=== PATIENT | female | born 1990 | race Hispanic/Latino ===

== ENCOUNTER 2018-10-03 15:21 | Emergency (ER) | payer OTHER ==
--- NOTE | 2018-10-03 16:12 | OBHP ---
Datetime: 10/03/2018 16:07 IP Adm Impression: Term, intrauterine IP Chief Complaint Other: low heart tone in office IP Admit Plan: Observation/Evaluation; Discharge home Admit Comment, IP Provider: Patient is a @ 39 wks for NST. patient was seen in office today and was found to have a heart rate around 115 on doppler. Patient sent for NST. Patient denies VB, oc casional contractions, +FM. No antepartum issues, no medical problems, no surgical problems, taking p renatal vitamins. FHR = 120 mod andressa, +accels, no decels. TOCO - ctxns q 10 mins, no very uncomfortabl e. Reactive NST, no signs of labor or chorio. Will discharge home, labor precautions discussed, pt to follow up in office next week Pelvic Type - PN: Adequate Extremities - PN: Normal Abdomen - PN: Normal Back - PN: Normal Breast - PN: Normal Lungs - PN: Normal Heart - PN: Normal Thyroid - PN: Normal Neurologic - PN: Normal HEENT - PN: Normal General - PN: Normal FHR - Baseline A Provider: 120 Contraction Comments Provider: Occasional Vital Signs Provider: Reviewed; Within Normal Limits NICHD Variability Prov Fetus A: Moderate 6-25bpm NICHD Accel Fetus A IP Provider: [id number] NICHD Decel Fetus A IP Provider: None Genitourinary Exam: Normal DTRs - PN: Normal
--- NOTE | 2018-10-03 16:14 | OBDCSUM ---
Datetime: 10/03/2018 16:06 Discharged to, Provider: Home Follow up at, Provider: Dr. Kan Disch Instr Activity: Normal activity Disch Instr Diet: Regular Discharge Instructions, Provider: Routine instructions given Discharge Time: 10/03/2018 16:06 Follow up in weeks, Provider: 10/10/2018 Disch Referrals: None Contraception discussed, Prov: h Discharge Diagnosis Prov Other: NST
[2018-10-03 16:46] VITALS: BMI 25.8
[2018-10-03 20:49] VITALS: BP 116/74; PULSE 81; RESP 18; TEMP 98.3; O2SAT 100
== END 2018-10-03 16:06 | disposition home or self-care (01) ==
LOC: H.EROB2 15:31
DX: O76 Abnormality in fetal heart rate and rhythm complicating labor and delivery (principal); Z3A.39 39 weeks gestation of pregnancy

== ENCOUNTER 2018-10-08 10:14 | Inpatient (IN) | payer OTHER ==
[2018-10-08 10:59] VITALS: BMI 26.2
[2018-10-08] MEDS: Lactated Ringer's 1,000 ML IV ONE ×2 (11:06→11:36)
[2018-10-08] MEDS ORDERED: Fentanyl/Bupivacaine HCl 250 ML EPI ONE (11:16)
[2018-10-08 11:20] LABS: BASO % 0.3 % (0.0-2.0); EOS # 0.1 K/uL (0.0-0.7); EOS % 0.9 % (0.0-4.0); HEMOGLOBIN 11.5 g/dL (12.0-16.0); LYMPH # 1.1 K/uL (1.0-4.3); LYMPH % 7.8 % (20.0-40.0); MEAN CELL VOLUME 85.5 fl (81.0-99.0); MEAN CORPUSCULAR HEMOGLOBIN 28.8 pg (27.0-31.0); MEAN CORPUSCULAR HGB CONC 33.7 g/dL (33.0-37.0); MEAN PLATELET VOLUME 9.2 fl (7.2-11.7); MONO % 7.3 % (0.0-10.0); NEUT # 11.6 K/uL (1.8-7.0); NEUT % 83.7 % (50.0-75.0); NRBC % 0.1 % (0.0-0.0); PLATELET COUNT 198 K/uL (130-400); RED CELL DISTRIBUTION WIDTH 13.6 % (11.5-14.5); WHITE BLOOD COUNT 13.9 K/uL (4.8-10.8)
[2018-10-08] MEDS ORDERED: Lactated Ringer's 1,000 ML IV SCH (12:00)
[2018-10-08 12:26] LABS: EOSINOPHIL 1 % (0-7); LYMPHOCYTE 9 % (20-50); MONOCYTE 6 % (0-10); NEUTROPHIL 84 % (42-75); PLATELET ESTIMATE NORMAL (NORMAL); TOTAL CELLS COUNTED 100
[2018-10-08 13:45] VITALS: O2SAT 100
[2018-10-08] MEDS ORDERED: OXYTOCIN/0.9 % NS 20 UNIT/1,000 ML BAG IV SCH (14:00)
[2018-10-08] MEDS ORDERED: Oxytocin 30 UNIT in NS 500 ml 30 UNITS/500 ML BAG IV ONE (14:01)
[2018-10-08] MEDS ORDERED: Lidocaine 1% Inj (20ml) ONE (15:57)
[2018-10-08] MEDS ORDERED: Benzocaine/Menthol SPRAY TOP PRN (19:52)
[2018-10-08] MEDS ORDERED: Oxycodone/Acetaminophen 5/325 mg Tab PO PRN ×2 (19:52)
[2018-10-09] MEDS ORDERED: Oxycodone/Acetaminophen 5/325 mg Tab PO PRN (07:22)
[2018-10-09] MEDS ORDERED: OXYTOCIN/0.9 % NS 20 UNIT/1,000 ML BAG IV SCH (07:22)
[2018-10-09] MEDS ORDERED: Benzocaine/Menthol SPRAY TOP PRN (07:22)
[2018-10-09 07:59] LABS: BASO % 0.2 % (0.0-2.0); EOS # 0.2 K/uL (0.0-0.7); EOS % 1.2 % (0.0-4.0); HEMOGLOBIN 10.6 g/dL (12.0-16.0); LYMPH # 1.5 K/uL (1.0-4.3); LYMPH % 10.6 % (20.0-40.0); MEAN CELL VOLUME 86.3 fl (81.0-99.0); MEAN CORPUSCULAR HGB CONC 33.6 g/dL (33.0-37.0); MEAN PLATELET VOLUME 9.4 fl (7.2-11.7); MONO % 7.4 % (0.0-10.0); NEUT % 80.6 % (50.0-75.0); RBC 3.66 Mil/uL (3.80-5.20); RED CELL DISTRIBUTION WIDTH 13.6 % (11.5-14.5); WHITE BLOOD COUNT 13.7 K/uL (4.8-10.8)
[2018-10-09] MEDS: Multivitamin With Minerals Tab PO SCH (08:45)
[2018-10-09] MEDS ORDERED: Multivitamin With Minerals Tab PO SCH (09:00)
--- NOTE | 2018-10-09 11:56 | OBDS ---
DELIVERY PERSONNEL Delivery Doctor: Lisa Kan MD Manager Travel: Jeana Harman RN Anesthesiologist: Dr. Sawyer MATERNAL INFORMATION Delivery Anesthesia: Epidural Medications in Delivery: Pitocin Placenta Cultured: No Maternal Complications: None Provider Comments: Normal spontaneous vaginal delivery. Patient delivered viable male with Apgars of 9 and 9 at 1 and 5 minutes respectively. Loos e nuchal cord x1 reduced. delivered via VICKY position. Placenta delivered spontaneously. Lac eration repaired, as above. Uterus firm and appropriately hemostatic following delivery. Patient to lerated delivery and repair well. No complications. Estimated blood loss 300 cc. LABOR SUMMARY EDC: 10/10/2018 00:00 No. Babies in Womb: 1 Attempted: No Labor Anesthesia: Epidural LABOR INFORMATION Reason for Induction: Not Applicable Onset of Labor: 10/08/2018 08:00 Complete Dilatation: 10/01/2018 15:20 Oxytocin: N/A Group B Beta Strep: Negative Steroids Given: None Reason Steroids Not Administered: Not Applicable MEMBRANES Membranes Rupture Method: Spontaneous Rupture of Membranes: 10/08/2018 08:00 Length of Rupture (hrs): 10.08 Amniotic Fluid Color: Clear Amniotic Fluid Amount: Moderate Amniotic Fluid Odor: None STAGES OF LABOR Stage 1 hrs: -160 Stage 1 min: -40 Stage 2 hrs: 170 Stage 2 min: 45 Stage 3 hrs: 0 Stage 3 min: 13 Total Time in Labor hrs: 10 Total Time in Labor min: 18 VAGINAL DELIVERY Episiotomy: None Laceration Extension: Second Degree Laceration Type: Perineal Laceration Repair: Yes Initial Vag Sponge Count: 5 Final Vag Sponge Count: 5 Initial Vag Sharps Count: 2 Final Vag Sharps Count: 2 Sponge Count Correct: N/A Sharps Count Correct: Yes BABY A INFORMATION Infant Delivery Date/Time: 10/08/2018 18:05 Method of Delivery: Vaginal Born in Route : No : N/A Forceps: N/A Vacuum Extraction: N/A Shoulder Dystocia : No ASSISTED DELIVERY BABY A Station Vacuum/Forcep Apply: SHOULDER DYSTOCIA BABY A Delivery Date/Time: 10/08/2018 18:05 PRESENTATION/POSITION BABY A Presentation: Cephalic Cephalic Presentation: N/A Vertex Position: Left Occipital Anterior PLACENTA INFORMATION BABY A Placenta Delivery Time : 10/08/2018 18:18 Placenta Method of Delivery: Spontaneous Placenta Status: Delivered SCORES BABY A Heart Rate 1 min: >100 bpm Resp Effort 1 min: Good Cry Reflex Irritability 1 min: Cough or Sneeze or Pulls Away Muscle Tone 1 min: Active Motion Color 1 min: Body [place], Extremities Blue Resuscitation Effort 1 min: N/A; Tactile Stimulation SCORE 1 MIN: 9 Heart Rate 5 min: >100 bpm Resp Effort 5 min: Good Cry Reflex Irritability 5 min: Cough or Sneeze or Pulls Away Muscle Tone 5 min: Active Motion Color 5 min: Body [place], Extremities Blue Resuscitation Effort 5 min: N/A SCORE 5 MIN: 9 INFORMATION BABY A Gestational Age at Delivery: 39.5 Gestational Status: Term Infant Outcome : Liveborn Infant Condition : Stable Sex: Male IDENTIFICATION/MEDS BABY A ID Band Number: [id number] ID Band Location: Left Leg; Left Arm WEIGHT/LENGTH BABY A Infant Birthweight (gms): 3920 Infant Weight (lb): 8 Infant Weight (oz): 10 CORD INFORMATION BABY A No. Cord Vessels: 3 Nuchal Cord : N/A Cord Blood Taken: Yes Infant Suction: Mouth ASSESSMENT BABY A Complications: None Physical Findings at Delivery: Within Normal Limits Infant Respirations: Appears Normal Continuous Dryout Operator/ALS Called : No Transferred To: Remains with Mother
--- NOTE | 2018-10-09 12:01 | OBDS ---
DELIVERY PERSONNEL Delivery Doctor: Lisa Kan MD Machinist Wood: Jeana Harman RN Anesthesiologist: Dr. Sawyer MATERNAL INFORMATION Delivery Anesthesia: Epidural Medications in Delivery: Pitocin Placenta Cultured: No Maternal Complications: None Provider Comments: Normal spontaneous vaginal delivery. Patient delivered viable male with Apgars of 9 and 9 at 1 and 5 minutes respectively. Loos e nuchal cord x1 reduced. delivered via VICKY position. Placenta delivered spontaneously. Lac eration repaired, as above. Uterus firm and appropriately hemostatic following delivery. Patient to lerated delivery and repair well. No complications. Estimated blood loss 300 cc. LABOR SUMMARY EDC: 10/10/2018 00:00 No. Babies in Womb: 1 Attempted: No Labor Anesthesia: Epidural LABOR INFORMATION Reason for Induction: Not Applicable Onset of Labor: 10/08/2018 08:00 Complete Dilatation: 10/01/2018 15:20 Oxytocin: N/A Group B Beta Strep: Negative Steroids Given: None Reason Steroids Not Administered: Not Applicable MEMBRANES Membranes Rupture Method: Spontaneous Rupture of Membranes: 10/08/2018 08:00 Length of Rupture (hrs): 10.08 Amniotic Fluid Color: Clear Amniotic Fluid Amount: Moderate Amniotic Fluid Odor: None STAGES OF LABOR Stage 1 hrs: -160 Stage 1 min: -40 Stage 2 hrs: 170 Stage 2 min: 45 Stage 3 hrs: 0 Stage 3 min: 13 Total Time in Labor hrs: 10 Total Time in Labor min: 18 VAGINAL DELIVERY Episiotomy: None Laceration Extension: Second Degree Laceration Type: Perineal Laceration Repair: Yes Initial Vag Sponge Count: 5 Final Vag Sponge Count: 5 Initial Vag Sharps Count: 2 Final Vag Sharps Count: 2 Sponge Count Correct: N/A Sharps Count Correct: Yes BABY A INFORMATION Infant Delivery Date/Time: 10/08/2018 18:05 Method of Delivery: Vaginal Born in Route : No : N/A Forceps: N/A Vacuum Extraction: N/A Shoulder Dystocia : No ASSISTED DELIVERY BABY A Station Vacuum/Forcep Apply: SHOULDER DYSTOCIA BABY A Delivery Date/Time: 10/08/2018 18:05 PRESENTATION/POSITION BABY A Presentation: Cephalic Presentation: Cephalic Cephalic Presentation: N/A Vertex Position: Left Occipital Anterior PLACENTA INFORMATION BABY A Placenta Delivery Time : 10/08/2018 18:18 Placenta Method of Delivery: Spontaneous Placenta Status: Delivered SCORES BABY A Heart Rate 1 min: >100 bpm Resp Effort 1 min: Good Cry Reflex Irritability 1 min: Cough or Sneeze or Pulls Away Muscle Tone 1 min: Active Motion Color 1 min: Body [place], Extremities Blue Resuscitation Effort 1 min: N/A; Tactile Stimulation SCORE 1 MIN: 9 Heart Rate 5 min: >100 bpm Resp Effort 5 min: Good Cry Reflex Irritability 5 min: Cough or Sneeze or Pulls Away Muscle Tone 5 min: Active Motion Color 5 min: Body [place], Extremities Blue Resuscitation Effort 5 min: N/A SCORE 5 MIN: 9 INFANT INFORMATION BABY A Gestational Age at Delivery: 39.5 Gestational Status: Term Infant Outcome : Liveborn Infant Condition : Stable Sex: Male IDENTIFICATION/MEDS BABY A ID Band Number: [id number] ID Band Location: Left Leg; Left Arm WEIGHT/LENGTH BABY A Birthweight (gms): 3920 Infant Weight (lb): 8 Weight (oz): 10 CORD INFORMATION BABY A No. Cord Vessels: 3 Nuchal Cord : N/A Cord Blood Taken: Yes Suction: Mouth ASSESSMENT BABY A Complications: None Physical Findings at Delivery: Within Normal Limits Infant Respirations: Appears Normal Lathmaker/ALS Called : No Transferred To: Remains with Mother
[2018-10-09] MEDS: Oxycodone/Acetaminophen 5/325 mg Tab PO PRN (21:54)
[2018-10-10] MEDS: Oxycodone/Acetaminophen 5/325 mg Tab PO PRN (06:46)
--- NOTE | 2018-10-10 07:45 | OBDCSUM ---
Datetime: 10/10/2018 07:44 Discharged to, Provider: Home Follow up at, Provider: Jam Disch Instr Activity: Normal activity; May Shower Disch Instr Diet: Regular Discharge Instructions, Provider: Routine instructions given Discharge Diagnosis, Provider: Term Delivered Discharge Time: 10/10/2018 07:44 Follow up in weeks, Provider: 5 weeks Disch Activity Restrictions: No exercising; No lifting; No sexual activity; Nothing in vagina - Inte rcourse, tampons, douche
--- NOTE | 2018-10-10 07:45 | OBPPN ---
Datetime: 10/10/2018 07:39 PP Pain Prov: Within normal limits PP Abdomen/Uterus Prov: Normal PP Lochia Prov: Normal PP Extremities Prov: Normal PP Progress Prov: Abnormal PP Impression Prov: Normal progression PP Plan Prov: Discharge PP Progress Note Prov: PPD 2 s/p , doing well, c/o right breast scabbing and would like to see a transportation consultant Rx motrin given Discharge home today Vital Signs Provider PP: Reviewed
[2018-10-10] MEDS: Multivitamin With Minerals Tab PO SCH (08:49)
[2018-10-11 00:04] VITALS: BP 132/75; PULSE 87; RESP 20; TEMP 98.3
== END 2018-10-10 13:48 | disposition home or self-care (01) | DRG 807 ==
LOC: H.L&D 11:00 → H.OB/GYN 19:54
PROVIDERS: ADMIT Obstetrics & Gynecology; ATTEND Obstetrics & Gynecology
PROC: 10E0XZZ Delivery of Products of Conception, External Approach (ICD-10-PCS; principal; 2018-10-08)
PROC: 0KQM0ZZ Repair Perineum Muscle, Open Approach (ICD-10-PCS; 2018-10-08)
DX: O69.81X0 Labor and delivery complicated by cord around neck, without compression, not applicable or unspecified (principal); Z37.0 Single live birth; O70.1 Second degree perineal laceration during delivery; Z3A.39 39 weeks gestation of pregnancy